=== PATIENT | female | born 1965 | race Two or more races ===

== ENCOUNTER 2020-02-20 07:49 | Outpatient (CLI) | payer OTHER ==
[~2020-02-20 07:49] MED LIST: SKELAXIN800 MG PO
== END 2020-02-20 08:03 | disposition home or self-care (01) ==
LOC: NUCLEAR 07:49
PROVIDERS: ATTEND Internal Medicine Cardiovascular Disease
DX: I20.9 Angina pectoris, unspecified (principal)
CPT/HCPCS: 78452; 93017; A9500